=== PATIENT | female | born 1995 | race Caucasian/White ===

== ENCOUNTER 2016-03-15 08:26 | Emergency (ER) | payer MEDICAID ==
[2016-03-15 08:34] VITALS: TEMP 97.8; BMI 32.1
[2016-03-15 09:13] LABS: LEUKOCYTES/URINE NEG (NEGATIVE); NITRITE/URINE NEG (NEGATIVE); URINE OCCULT BLOOD NEG (NEG/TRACE)
[2016-03-15 09:39] LABS: AUTOMATED BASOPHIL 0.1 % (0-2); AUTOMATED EOSINOPHIL 0.3 % (0-5); AUTOMATED LYMPH 12.8 % (17-44); AUTOMATED NEUTROPHIL 79.8 % (45-76); MPV 8.8 fL (7.4-10.4)
[2016-03-15 09:51] LABS: BLOOD UREA NITROGEN 11 MG/DL (7-17); CALCIUM 8.6 MG/DL (8.4-10.2); CALCULATED OSMOLALITY 272 MOs/Kg (270-290); CHLORIDE 109 mEq/L (98-107); GLUCOSE 97 MG/DL (70-99); SODIUM LEVEL 142 mEq/L (137-146); TOTAL PROTEIN 7.1 G/DL (6.3-8.2)
--- NOTE | 2016-03-15 10:24 | EDPRACDOC ---
- General Information Chief Complaint: Abdominal Pain Stated Complaint: ABD PAIN/ DIFFICULTY BREATHING Time Seen by Provider: 03/15/16 08:57 Information Source: Patient Mode Of Arrival: Car Home Medications: Home Medications Cephalexin Monohydrate [Keflex] 500 mg PO Q6H #20 cap 12/29/15 Fluconazole [Diflucan] 150 mg PO DAILY #1 tab 12/29/15 Ketoprofen 50 mg PO BID PRN #20 capsule 12/29/15 Hydrocodone Bit/Acetaminophen [[place] 5-325 Tablet] 1 each PO Q4H #10 tab Allergies/Adverse Reactions: Allergies Allergy/AdvReac Type Severity Reaction Status Date / Time No Known Allergies Allergy Verified 03/15/16 08:29 - History of Present Illness Onset: 2 days HPI: PT PRESENTS TODAY WITH 2 DAYS OF RUQ ABD PAIN. PT STATES THAT SHE HAD SIMILAR PAIN 2 YEARS AGO WHEN GIVING TO HER SON AND WAS TOLD SHE HAD A HIATAL HERNIA THAT WAS CONFIRMED ON CT HERE 6 MONTHS AGO. PT STATES THE PAIN IS INTERMITTENT AND IS CURRENTLY NOT PRESENT. PT STATES SHE COUGHED WHILE IN TRIAGE AND THIS MADE THE PAIN GO AWAY. STATES SOME INTERMITTENT SUBJECTIVE FEVER. DENIES CP, SHOB, N/V/D. PT CURRENTLY ABOUT 3 WEEKS BASED ON LMP. PT CURRENTLY SLEEPING ON MY ARRIVAL. Pain Location: Reports: RUQ Pain Context: Reports: Spontaneous Pain Severity: Moderate Pain Quality: Reports: Cramping, Sharp Pain Radiation: Reports: No Radiation : Yes (3 weeks) Blood Type: O+ Female Abdominal History: Reports: UTI Modifying Factors: improves with: Movement Female Associated Signs & Symptoms: Reports: Fever Oral Intake: Normal Urinary Output: Normal ED Past Medical History - History Reviewed Yes Nurses notes reviewed and agree except as marked - Patient Medical History GI/ History: Reports: Urinary Tract Infection Psychological History: Reports: Depression, Anxiety. Denies: Bipolar Disorder Systemic History: Denies: Anemia, Lupus - Family Medical History Reports: Hypertension, Diabetes, Cardiac Disorders. Denies: Cancer, Stroke - Social Medical History Smoking Status: Never smoker EDM Review of Systems - Review of Systems ROS Negative Except as Marked: Yes All systems reviewed and were negative except as marked Constitutional: Fever Ears: No Symptoms Reported Throat: No Symptoms Reported Nose: No Symptoms Reported Respiratory: No Symptoms Reported Cardiovascular: No Symptoms Reported Gastrointestinal: Pain Genitourinary: Neurological: No Symptoms Reported Musculoskeletal: No Symptoms Reported Integumentary: No Symptoms Reported - Physical Exam Constitutional: Alert (Awake), No apparent distress Oriented to: Time, Person, Place Last recorded Vital Signs: Last Vital Signs Temp 97.8 F 03/15/16 08:30 Pulse 85 03/15/16 10:42 Resp 20 03/15/16 10:42 BP 117/59 L 03/15/16 10:42 Pulse Ox 96 03/15/16 10:42 Oxygen Pulse Oxygen Saturation 96 O2 Device Room Air Oxygen Flow Rate Fraction of Inspired Oxygen ( FIO2) - HEENT Head: Normal Eye Exam: Normal Neck: Normal, Denies Pain, Midline - Respiratory/Cardiovascular Respiratory: Normal - CTA Cardiovascular: Normal - GI Auscultation: Normal Palpation: Normal Tenderness: Moderate, RUQ Pettit's Sign: Positive - Musculoskeletal Back: Normal Extremities: Normal - Integumentary Skin: Normal Lymphatics: Normal - Neurologic Cerebellar: Normal Mood Description: Normal Thought: Coherent Perception: Normal - Results 03/15/16 09:30 03/15/16 09:30 WBC 7.4 xk/uL (3.8-10.8) 03/15/16 09:30 RBC 4.34 xM/uL (4.20-5.40) 03/15/16 09:30 Hgb 13.0 g/dL (12.0-16.0) 03/15/16 09:30 Hct 38.8 % (36-47) 03/15/16 09:30 MCV 89 fL (81-99) 03/15/16 09:30 MCH 29.9 pg (27-32) 03/15/16 09:30 MCHC 33.4 g/dl (33-36) 03/15/16 09:30 RDW 13.1 % (11.5-14.5) 03/15/16 09:30 Plt Count 222 xk/uL (130-400) 03/15/16 09:30 MPV 8.8 fL (7.4-10.4) 03/15/16 09:30 Neut % (Auto) 79.8 % (45-76) H 03/15/16 09:30 Lymph % (Auto) 12.8 % (17-44) L 03/15/16 09:30 Miner % (Auto) 7.0 % (3-10) 03/15/16 09:30 Eos % (Auto) 0.3 % (0-5) 03/15/16 09:30 Baso % (Auto) 0.1 % (0-2) 03/15/16 09:30 Absolute Neuts (auto) 5.85 xk/uL (1.7-8.2) 03/15/16 09:30 Absolute Lymphs (auto) 0.89 xk/uL (0.65-4.75) 03/15/16 09:30 Sodium 142 mEq/L (137-146) 03/15/16 09:30 Potassium 4.1 mEq/L (3.5-5.1) 03/15/16 09:30 Chloride 109 mEq/L (98-107) H 03/15/16 09:30 Carbon Dioxide 22 mMOL/L (22-33) 03/15/16 09:30 Anion Gap 15 mEq/L (8-16) 03/15/16 09:30 BUN 11 MG/DL (7-17) 03/15/16 09:30 Creatinine 0.50 MG/DL (0.52-1.04) L 03/15/16 09:30 Estimated GFR (MDRD) > 60 mL/min (>=60) 03/15/16 09:30 Glucose 97 MG/DL (70-99) 03/15/16 09:30 Calculated Osmolality 272 MOs/Kg (270-290) 03/15/16 09:30 Calcium 8.6 MG/DL (8.4-10.2) 03/15/16 09:30 Total Bilirubin 0.7 MG/DL (0.2-1.3) 03/15/16 09:30 AST 68 IU/L (14-36) H 03/15/16 09:30 ALT 68 IU/L (9-52) H 03/15/16 09:30 Alkaline Phosphatase 62 IU/L (38-126) 03/15/16 09:30 Total Protein 7.1 G/DL (6.3-8.2) 03/15/16 09:30 Albumin 4.1 G/DL (3.5-5.0) 03/15/16 09:30 Lipase 95 U/L (23-300) 03/15/16 09:30 Urine Color Yellow 03/15/16 08:55 Urine Clarity Cldy 03/15/16 08:55 Urine pH 6.0 (5.0-8.0) 03/15/16 08:55 Ur Specific [place] 1.030 (1.003-1.035) 03/15/16 08:55 Urine Protein 1+ (NEG/TRACE) H 03/15/16 08:55 Urine Glucose (UA) Neg (NEGATIVE) 03/15/16 08:55 Urine Ketones 3+ (NEGATIVE) H 03/15/16 08:55 Urine Occult Blood Neg (NEG/TRACE) 03/15/16 08:55 Urine Nitrite Neg (NEGATIVE) 03/15/16 08:55 Urine Bilirubin Neg (NEGATIVE) 03/15/16 08:55 Urine Urobilinogen <2.0 MG/DL (0-1) 03/15/16 08:55 Ur Leukocyte Esterase Neg (NEGATIVE) 03/15/16 08:55 Urine RBC 5-10 (0-5) H 03/15/16 08:55 Urine WBC 2-5 (0-5) 03/15/16 08:55 Ur Epithelial Cells 4+ 03/15/16 08:55 Urine Bacteria Few (NEG/FEW) 03/15/16 08:55 Urine Mucus Large (NEG/OCC) 03/15/16 08:55 Lab Results 03/15/16 03/15/16 03/15/16 09:30 09:30 08:55 WBC 7.4 RBC 4.34 Hgb 13.0 Hct 38.8 MCV 89 MCH 29.9 MCHC 33.4 RDW 13.1 Plt Count 222 MPV 8.8 Neut % (Auto) 79.8 H Lymph % (Auto) 12.8 L Miner % (Auto) 7.0 Eos % (Auto) 0.3 Baso % (Auto) 0.1 Absolute Neuts (auto) 5.85 Absolute Lymphs (auto) 0.89 Sodium 142 Potassium 4.1 Chloride 109 H Carbon Dioxide 22 Anion Gap 15 BUN 11 Creatinine 0.50 L Estimated GFR (MDRD) > 60 Glucose 97 Calculated Osmolality 272 Calcium 8.6 Total Bilirubin 0.7 AST 68 H ALT 68 H Alkaline Phosphatase 62 Total Protein 7.1 Albumin 4.1 Lipase 95 Urine Color Yellow Urine Clarity Cldy Urine pH 6.0 Ur Specific [place] 1.030 Urine Protein 1+ H Urine Glucose (UA) Neg Urine Ketones 3+ H Urine Occult Blood Neg Urine Nitrite Neg Urine Bilirubin Neg Urine Urobilinogen <2.0 Ur Leukocyte Esterase Neg Urine RBC 5-10 H Urine WBC 2-5 Ur Epithelial Cells 4+ Urine Bacteria Few Urine Mucus Large Decision Time to Discharge: 11:04 - Departure Disposition: Home Condition: Good Final Diagnosis: Cholelithiasis Qualifiers: Cholelithiasis location: gallbladder Cholecystitis presence: with cholecystitis Cholecystitis acuity: unspecified acuity Biliary obstruction: without biliary obstruction Qualified Code(s): K80.00 - Calculus of gallbladder with acute cholecystitis without obstruction Instructions: Gallstones (ED) Education/Counseling Given To: Patient Education/Counseling Given Regarding: Diagnosis, Treatment, Follow Up Referrals: None,No Provider [Primary Care Provider] - One Week Warren Hilliard MD [Staff Physician] - One Week Shayla Pathak DO [Staff Physician] - One Week Crispin Sam II, MD [Staff Physician] - One Week Prescriptions: Hydrocodone Bit/Acetaminophen [[place] 5-325 Tablet] 1 each PO Q4H #10 tab Additional Instructions: AVOID FATTY/SPICY/GREASY FOODS. BLAND DIET. PLENTY OF WATER. WE WILL CALL YOU FOR ANY POSITIVE RESULTS REGARDING THE HEPATITIS PANEL. 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 IF YOU DEVELOP FEVER OR INTRACTABLE VOMITING, PLEASE RETURN TO ED.
--- NOTE | 2016-03-15 10:44 | DIRPT ---
CLINICAL DATA: Acute right upper quadrant pain. EXAM: US ABDOMEN LIMITED - RIGHT UPPER QUADRANT COMPARISON: None. FINDINGS: Gallbladder: Sludge and small mobile stones within the mildly distended gallbladder, largest stone measuring 3 mm. No gallbladder wall thickening or pericholecystic fluid. No sonographic Pettit's sign elicited by the mock up builder during the exam. Common bile duct: Diameter: Normal at 4 mm. Liver: No focal lesion identified. Within normal limits in parenchymal echogenicity. IMPRESSION: 1. Gallbladder contains sludge and small mobile stones. No evidence of cholecystitis. 2. No bile duct dilatation. 3. Liver appears normal. 4. Overall, no acute findings. Electronically Signed By: Yaniv Flaherty M.D. On: 03/15/2016 10:42
[2016-03-15 11:12] VITALS: BP 113/59; PULSE 97
== END 2016-03-15 11:20 | disposition home or self-care (01) ==
LOC: ED 08:26
DX: K80.00 Calculus of gallbladder with acute cholecystitis without obstruction (principal)
CPT/HCPCS: 36415; 76705; 80053; 80074; 81001; 83690; 85025; 99283